=== PATIENT | female | born 1950 | race Hispanic/Latino ===

== ENCOUNTER 2017-07-17 22:04 | Observation (INO) | payer MEDICARE ==
[~2017-07-17] VITALS: Ht 149.9 cm; Wt 64.3 kg
[2017-07-17] MEDS ORDERED: ASPIRIN 325 MG TABLET ONE (23:19)
[2017-07-17 23:45] LABS: BASOPHILS % (AUTO) 0.8 % (0.0-5.0); EOSINOPHILS % (AUTO) 1.8 % (0.0-8.0); HEMATOCRIT 30.1 % (36-48); LYMPHOCYTES % (AUTO) 38.6 % (21.0-51.0); MEAN CORPUSCULAR HGB CONC 34.3 g/dL (32.0-36.0); MEAN CORPUSCULAR VOLUME 87.6 fL (79-99); MONOCYTES % (AUTO) 7.5 % (3.0-13.0); NEUTROPHILS % (AUTO) 51.3 % (40.0-77.0); PLATELET COUNT (AUTO) 289 K/uL (130-400); RED BLOOD CELL COUNT(AUTO) 3.44 MIL/uL (4.00-5.50); RED CELL DISTRIBUTION WIDTH 13.5 % (11.0-15.5); WHITE BLOOD COUNT (AUTO) 7.3 K/uL (4.8-10.8)
[2017-07-17 23:46] LABS: APPEARANCE,URINE Clear (CLEAR); BILIRUBIN,URINE Negative (NEGATIVE); COLOR,URINE Yellow (YELLOW); GLUCOSE, URINE (UA) Negative (NEGATIVE); KETONES,URINE Negative (NEGATIVE); LEUKOCYTE ESTERASE ,URINE Small (NEGATIVE); NITRATE,URINE Negative (NEGATIVE); OCCULT BLOOD,URINE Negative (NEGATIVE); PROTEIN,URINE Negative (NEGATIVE); UROBILINOGEN,URINE 0.2 mg/dL (0.2-1.0)
[2017-07-17 23:57] LABS: CREATININE 1.1 mg/dL (0.5-1.5); POTASSIUM 4.2 mmol/L (3.5-5.1)
[2017-07-18] VITALS (10 sets, daily range): BP systolic 128–162; BP diastolic 47–65
[2017-07-18 00:07] LABS: RBC,URINE 0-1 /HPF (0-1)
[2017-07-18 00:08] LABS: BACTERIA,URINE Rare /HPF (None Seen); SQUAMOUS EPITHELIAL CELL,UR 0-2 /LPF (0-2); WBC,URINE 0-1 /HPF (0-1)
[2017-07-18 00:11] LABS: ALBUMIN 3.8 g/dL (3.5-5.0); BILIRUBIN,TOTAL 0.2 mg/dL (0.2-1.0); CREATINE KINASE MB 0.7 ng/mL (0.5-3.6); TOTAL PROTEIN, SERUM 7.6 g/dL (6.0-8.3)
[2017-07-18] MEDS ORDERED: ACETAMINOPHEN 325 MG TAB ONE (00:40)
[2017-07-18] MEDS ORDERED: SERT50TA12 PO (04:47)
[2017-07-18] MEDS ORDERED: ATOR40TA69 PO (04:47)
[2017-07-18] MEDS ORDERED: OLME20TA22 PO (04:47)
[2017-07-18] MEDS ORDERED: HYDROCORT PO (04:47)
[2017-07-18] MEDS ORDERED: CYAN-35 PO (04:47)
[2017-07-18] MEDS ORDERED: AMLO10TA2 PO (04:47)
[2017-07-18] MEDS ORDERED: LEVO125 PO (04:47)
[2017-07-18] MEDS ORDERED: FOLI1TAB15 PO (04:47)
[2017-07-18] MEDS ORDERED: FENO135C4 PO (04:47)
[2017-07-18] MEDS ORDERED: RANO500T2 PO (04:47)
[2017-07-18] MEDS ORDERED: BIOT300T2 PO (04:47)
[2017-07-18] MEDS ORDERED: ESOM20CA39 PO (04:47)
[2017-07-18] MEDS ORDERED: OMEG-75 PO (04:47)
[2017-07-18] MEDS ORDERED: SODIUM CHLORIDE 0.9% 1000ML 1,000 ML IV ONE (05:20)
[2017-07-18 06:39] LABS: HEMATOCRIT 28.7 % (36-48); LYMPHOCYTES % (AUTO) 53.5 % (21.0-51.0); MEAN CORPUSCULAR HEMOGLOBIN 30.5 pg (27.0-33.0); MEAN CORPUSCULAR HGB CONC 34.9 g/dL (32.0-36.0); MEAN CORPUSCULAR VOLUME 87.2 fL (79-99); MONOCYTES % (AUTO) 7.9 % (3.0-13.0); NEUTROPHILS % (AUTO) 34.6 % (40.0-77.0); PLATELET COUNT (AUTO) 275 K/uL (130-400); RED BLOOD CELL COUNT(AUTO) 3.29 MIL/uL (4.00-5.50); RED CELL DISTRIBUTION WIDTH 13.4 % (11.0-15.5); WHITE BLOOD COUNT (AUTO) 6.3 K/uL (4.8-10.8)
[2017-07-18] MEDS ORDERED: POTASSIUM CHLORIDE 20MEQ/100ML 100 ML IV PRN (06:45)
[2017-07-18] MEDS ORDERED: CLONIDINE HCL 0.1 MG TABLET PO PRN (06:45)
[2017-07-18] MEDS ORDERED: ACETAMINOPHEN 325 MG TAB PO PRN ×2 (06:45)
[2017-07-18] MEDS ORDERED: LIDOCAINE HCL-MPF 1% 2ML VIAL IJ PRN (06:45)
[2017-07-18] MEDS ORDERED: SODIUM CHLORIDE 0.9% 1000ML 1,000 ML IV SCH (06:45)
[2017-07-18] MEDS ORDERED: SODIUM CHLORIDE 0.9% 10 ML VIAL IVP SCH (06:45)
[2017-07-18] MEDS ORDERED: LACTULOSE 20 GM/30 ML UDCUP PO PRN (06:45)
[2017-07-18] MEDS ORDERED: POTASSIUM CHLORIDE 10% ELIXIR 20 MEQ/15 ML UDCUP PO PRN (06:45)
[2017-07-18] MEDS ORDERED: NITROGLYCERIN 0.4 MG SL TAB SL PRN (06:45)
[2017-07-18] MEDS ORDERED: POTASSIUM CHLORIDE 20 MEQ ERTAB PO PRN (06:45)
[2017-07-18 07:05] LABS: CARBON DIOXIDE 23 mmol/L (21-32); CHLORIDE 106 mmol/L (101-111); CREATINE KINASE MB 0.6 ng/mL (0.5-3.6); CREATINE KINASE, TOTAL 73 U/L (21-232); GLOMERULAR FILTR. RATE CALC 59 mL/min (>60); GLUCOSE,RANDOM 102 mg/dL (70-105); MYOGLOBIN 47 ng/mL (10-92); POTASSIUM 3.9 mmol/L (3.5-5.1); SODIUM SERUM 138 mmol/L (136-145); TROPONIN I < 0.04 ng/mL (0.00-0.06); UREA NITROGEN, BLOOD 22 mg/dL (7-18)
[2017-07-18] MEDS: FAMOTIDINE 20MG TAB 20 MG TAB PO SCH ×2 (08:38→21:44)
[2017-07-18] MEDS: ASPIRIN 81 MG EC TAB PO SCH (08:38)
[2017-07-18] MEDS ORDERED: BIOTIN 500 MCG PO SCH (09:00)
[2017-07-18] MEDS: CYANOCOBALAMIN (VITAMIN B-12) 1,000 MCG TABLET PO SCH (09:00)
[2017-07-18] MEDS ORDERED: FENOFIBRIC ACID 135 MG PO SCH (09:00)
[2017-07-18] MEDS: FISH OIL 1000 MG/CAP PO SCH ×2 (13:17→21:44)
[2017-07-18] MEDS: FOLIC ACID 1 MG TABLET PO SCH (13:17)
[2017-07-18] MEDS: RANOLAZINE 500 MG TAB.SR.12H PO SCH (13:17)
[2017-07-18] MEDS: AMLODIPINE BESYLATE 5 MG TAB PO SCH (13:17)
[2017-07-18] MEDS: SERTRALINE HCL 50 MG TABLET PO SCH (13:18)
[2017-07-18] MEDS ORDERED: ATORVASTATIN CALCIUM 40 MG TABLET PO SCH (21:00)
[2017-07-19 04:16] VITALS: BP 152/62
[2017-07-19 04:35] LABS: CREATININE 0.9 mg/dL (0.5-1.5); POTASSIUM 4.2 mmol/L (3.5-5.1)
[2017-07-19] MEDS ORDERED: LEVOTHYROXINE 125 MCG TABLET PO SCH (07:30)
[2017-07-19] MEDS ORDERED: HYDROCORTISONE 10 MG PO SCH (08:00)
[2017-07-19 08:15] VITALS: BP 157/57
[2017-07-19] MEDS: FOLIC ACID 1 MG TABLET PO SCH (08:25)
[2017-07-19] MEDS: CYANOCOBALAMIN (VITAMIN B-12) 1,000 MCG TABLET PO SCH (08:25)
[2017-07-19] MEDS: FAMOTIDINE 20MG TAB 20 MG TAB PO SCH (08:26)
[2017-07-19] MEDS: FISH OIL 1000 MG/CAP PO SCH (08:26)
[2017-07-19] MEDS: ASPIRIN 81 MG EC TAB PO SCH (08:26)
[2017-07-19] MEDS: RANOLAZINE 500 MG TAB.SR.12H PO SCH (08:26)
[2017-07-19] MEDS: AMLODIPINE BESYLATE 5 MG TAB PO SCH (08:26)
[2017-07-19] MEDS: SERTRALINE HCL 50 MG TABLET PO SCH (08:26)
[2017-07-19] MEDS ORDERED: LOSARTAN 100 MG TABLET PO SCH (09:00)
== END 2017-07-19 10:20 | disposition home or self-care (01) ==
LOC: EDH 22:04 → EDHIP 07-18 01:53 → 3AH 07-18 04:18
PROVIDERS: ADMIT Family Medicine; ATTEND Family Medicine
DX: I95.9 Hypotension, unspecified (principal); R53.1 Weakness; R07.89 Other chest pain; I10 Essential (primary) hypertension; E03.9 Hypothyroidism, unspecified; E78.5 Hyperlipidemia, unspecified; I20.9 Angina pectoris, unspecified; M19.90 Unspecified osteoarthritis, unspecified site; N28.89 Other specified disorders of kidney and ureter
CPT/HCPCS: 36415 ×3; 71046; 80048 ×2; 80053; 81001; 82550 ×2; 82553 ×2; 83874 ×2; 84484 ×2; 85025 ×2; 93005 ×2; 97161; 99285; G0378 ×32; G8978; G8979; G8980; G8981; G8982; G8983; J7030

== ENCOUNTER 2018-12-05 21:44 | Emergency (ER) | payer MEDICARE ==
[~2018-12-05 21:44] MED LIST: AMLO10TA7 PO; ATOR40TA69 PO; CHOL200012 PO; CYAN-35 PO; DIPH25TA51 PO; ESOM20CA39 PO; FENO135C4 PO; FOLI1TAB15 PO; HYDROCORT PO; LEVO125 PO; LEVO500T2 PO; METR500T PO; NITR0.4T50 SL; OLME5TAB6 PO; OMEG-75 PO; RANO500T2 PO; SERT50TA12 PO
[2018-12-05] MEDS ORDERED: ONDANSETRON HCL 4 MG/2 ML VIAL ONE (22:36)
[2018-12-05] MEDS ORDERED: SODIUM CHLORIDE 0.9% 1000ML 1,000 ML IV ONE (22:36)
[2018-12-05] MEDS ORDERED: DIPHENOXYLATE HCL/ATROPINE 2.5/0.025 MG TAB PO ONE (22:36)
[2018-12-05 22:42] LABS: BASOPHILS % (AUTO) 1.5 % (0.0-5.0); EOSINOPHILS % (AUTO) 5.3 % (0.0-8.0); HEMATOCRIT 32.8 % (36-48); LYMPHOCYTES % (AUTO) 49.1 % (21.0-51.0); MEAN CORPUSCULAR HEMOGLOBIN 29.7 pg (27.0-33.0); MEAN CORPUSCULAR HGB CONC 33.7 g/dL (32.0-36.0); MEAN CORPUSCULAR VOLUME 88.1 fL (79-99); MONOCYTES % (AUTO) 12.1 % (3.0-13.0); PLATELET COUNT (AUTO) 215 K/uL (130-400); RED BLOOD CELL COUNT(AUTO) 3.73 MIL/uL (4.00-5.50); RED CELL DISTRIBUTION WIDTH 13.8 % (11.0-15.5); WHITE BLOOD COUNT (AUTO) 3.3 K/uL (4.8-10.8)
[2018-12-05 22:50] LABS: APPEARANCE,URINE Clear (CLEAR); BILIRUBIN,URINE Negative (NEGATIVE); COLOR,URINE Dark Yellow (YELLOW); GLUCOSE, URINE (UA) Negative (NEGATIVE); KETONES,URINE Trace mg/dL (NEGATIVE); LEUKOCYTE ESTERASE ,URINE Small (NEGATIVE); NITRATE,URINE Negative (NEGATIVE); OCCULT BLOOD,URINE Trace (NEGATIVE); PROTEIN,URINE Negative (NEGATIVE)
[2018-12-05 23:00] LABS: CREATININE 0.8 mg/dL (0.5-1.5); POTASSIUM 3.8 mmol/L (3.5-5.1)
[2018-12-05 23:04] LABS: ALBUMIN 3.3 g/dL (3.5-5.0); BILIRUBIN,TOTAL 0.3 mg/dL (0.2-1.0)
[2018-12-05 23:04] LABS: BACTERIA,URINE Few /HPF (None Seen); RBC,URINE 0-1 /HPF (0-1)
[2018-12-05 23:05] LABS: SQUAMOUS EPITHELIAL CELL,UR 0-2 /HPF (0-2)
[2018-12-11] MEDS ORDERED: ROPIVACAINE 0.5% 5MG/ML 30ML IJ ONE (21:03)
== END 2018-12-06 00:28 | disposition home or self-care (01) ==
LOC: EDH 21:44
DX: A09 Infectious gastroenteritis and colitis, unspecified (principal); R11.2 Nausea with vomiting, unspecified; M19.90 Unspecified osteoarthritis, unspecified site; E78.5 Hyperlipidemia, unspecified; I10 Essential (primary) hypertension; E07.9 Disorder of thyroid, unspecified; Z88.0 Allergy status to penicillin
CPT/HCPCS: 36415; 80053; 81001; 83690; 85025; 87804 ×2; 96361; 96374; 99285; J2405; J7030

== ENCOUNTER → 2019-04-18 | Outpatient (CLI) | payer MEDICARE ==
--- NOTE | 2019-04-18 11:00 | NUR ---
MBSS COMPLETED. -S/S OF ASPIRATION. RECOMMEND REGULAR TEXTURE, THIN LIQUIDS; PILLS WHOLE WITH LIQUIDS. Addendum: 04/19/19 at 0853 by DANIELLE LUU, [facility] Amended: Links added.
== END | disposition home or self-care (01) ==
LOC: RAH 09:51
PROVIDERS: ATTEND Internal Medicine Gastroenterology
DX: R13.12 Dysphagia, oropharyngeal phase (principal); R63.3 Feeding difficulties; Z88.0 Allergy status to penicillin
CPT/HCPCS: 74230; 92611

== ENCOUNTER 2019-08-25 13:55 | Inpatient (IN) | payer MEDICARE ==
[~2019-08-25] VITALS: Ht 149.9 cm; Wt 61.6 kg
[~2019-08-25 13:55] MED LIST changes: +ASPI-555 PO; -ATOR40TA69 PO; +B12/1TAB PO; -CHOL200012 PO; -CYAN-35 PO; -DIPH25TA51 PO; +ERGO800010 PO; -ESOM20CA39 PO; -FENO135C4 PO; +FOLI0.4T2 PO; -FOLI1TAB15 PO; +HYDR-3894 PO; +HYDR12.54 PO; -HYDROCORT PO; +ICOS1CAP PO; +ISOS30TA6 PO; +LEVE-43 PO; -LEVO125 PO; +LEVO125T11 PO; +LOSA50TA64 PO; +METF-444 PO; -METR500T PO; -OLME5TAB6 PO; -OMEG-75 PO; +OMEP40CA13 PO; -RANO500T2 PO; +ROSU20TA31 PO
[2019-08-25 14:24] LABS: BASOPHILS % (AUTO) 0.1 % (0.0-5.0); EOSINOPHILS % (AUTO) 0.1 % (0.0-8.0); HEMATOCRIT 38.1 % (36-48); LYMPHOCYTES % (AUTO) 16.9 % (21.0-51.0); MEAN CORPUSCULAR HEMOGLOBIN 28.7 pg (27.0-33.0); MEAN CORPUSCULAR HGB CONC 32.8 g/dL (32.0-36.0); MEAN CORPUSCULAR VOLUME 87.6 fL (79-99); MONOCYTES % (AUTO) 2.2 % (3.0-13.0); NEUTROPHILS % (AUTO) 80.6 % (40.0-77.0); PLATELET COUNT (AUTO) 276 K/uL (130-400); RED BLOOD CELL COUNT(AUTO) 4.35 MIL/uL (4.00-5.50); RED CELL DISTRIBUTION WIDTH 12.6 % (11.0-15.5); WHITE BLOOD COUNT (AUTO) 8.3 K/uL (4.8-10.8)
[2019-08-25 14:45] LABS: CARBON DIOXIDE 21 mmol/L (21-32); CHLORIDE 104 mmol/L (101-111); CREATININE 1.3 mg/dL (0.5-1.5); GLOMERULAR FILTR. RATE CALC 43 mL/min (>60); GLUCOSE,RANDOM 98 mg/dL (70-105); INR 0.94 (0.85-1.15); PARTIAL THROMBOPLASTIN TIME 21.9 SEC (26.3-35.5); POTASSIUM 3.8 mmol/L (3.5-5.1); PROTHROMBIN TIME 10.2 SEC (9.6-11.6); SODIUM SERUM 142 mmol/L (136-145); UREA NITROGEN, BLOOD 22 mg/dL (7-18)
[2019-08-25 14:57] LABS: ALANINE AMINOTRANSFERASE 29 U/L (12-78); ASPARTATE AMINOTRANSFERASE 27 U/L (10-37); BILIRUBIN,TOTAL 0.2 mg/dL (0.2-1.0); CREATINE KINASE, TOTAL 56 U/L (21-232); MYOGLOBIN 64 ng/mL (10-92); TOTAL PROTEIN, SERUM 8.2 g/dL (6.0-8.3); TROPONIN I < 0.04 ng/mL (0.00-0.06)
[2019-08-25] MEDS ORDERED: SODIUM CHLORIDE 0.9% 500ML 500 ML IV ONE (15:07)
[2019-08-25 15:56] LABS: APPEARANCE,URINE Cloudy (CLEAR); BILIRUBIN,URINE Small (NEGATIVE); COLOR,URINE Dark Yellow (YELLOW); GLUCOSE, URINE (UA) Negative (NEGATIVE); KETONES,URINE Trace mg/dL (NEGATIVE); LEUKOCYTE ESTERASE ,URINE Trace (NEGATIVE); NITRATE,URINE Negative (NEGATIVE); OCCULT BLOOD,URINE Negative (NEGATIVE); PROTEIN,URINE POS 1+ mg/dL (NEGATIVE)
[2019-08-25 16:21] LABS: BACTERIA,URINE Few /HPF (None Seen); RBC,URINE 0-1 /HPF (0-1)
[2019-08-25 16:22] LABS: MUCUS,URINE Few LPF (None Seen); SQUAMOUS EPITHELIAL CELL,UR Few /HPF (0-2)
[2019-08-25] MEDS ORDERED: SODIUM CHLORIDE 0.9% 1000ML 1,000 ML IV SCH (19:56)
[2019-08-25] MEDS ORDERED: NITROGLYCERIN 0.4 MG SL TAB SL PRN (20:00)
[2019-08-25] MEDS ORDERED: ONDANSETRON HCL 4 MG/2 ML VIAL IV PRN (20:00)
[2019-08-25] MEDS ORDERED: ACETAMINOPHEN 325 MG TAB PO PRN ×2 (20:00)
[2019-08-25] MEDS ORDERED: ACETAMINOPHEN 325 MG TAB ONE (20:21)
[2019-08-25] MEDS ORDERED: SODIUM CHLORIDE 0.9% 1000ML 1,000 ML IV ONE (20:47)
[2019-08-25 20:59] LABS: CREATINE KINASE, TOTAL 102 U/L (21-232); MYOGLOBIN 143 ng/mL (10-92); TROPONIN I < 0.04 ng/mL (0.00-0.06)
[2019-08-25] MEDS ORDERED: IOHEXOL-350 75 ML VIAL IV ONE (21:18)
[2019-08-25 21:22] LABS: HEMOGLOBIN A1C 5.6 % (4.0-6.0)
[2019-08-26 04:57] LABS: HEMATOCRIT 31.2 % (36-48); MEAN CORPUSCULAR HEMOGLOBIN 28.7 pg (27.0-33.0); MEAN CORPUSCULAR VOLUME 86.9 fL (79-99); PLATELET COUNT (AUTO) 234 K/uL (130-400); RED BLOOD CELL COUNT(AUTO) 3.59 MIL/uL (4.00-5.50); WHITE BLOOD COUNT (AUTO) 12.3 K/uL (4.8-10.8)
[2019-08-26 05:15] LABS: ALBUMIN 2.8 g/dL (3.5-5.0); BILIRUBIN,TOTAL 0.4 mg/dL (0.2-1.0); MAGNESIUM 2.4 mg/dL (1.80-2.40); POTASSIUM 3.9 mmol/L (3.5-5.1); TOTAL PROTEIN, SERUM 6.4 g/dL (6.0-8.3)
[2019-08-26 06:15] VITALS: BP 146/50
--- NOTE | 2019-08-26 06:15 | NUR ---
ADMISSION PT TRANSFERRED FORM ER VIA STRETCHER, INTO ROOM 405. AWAKE, ALERT AND VERBALLY RESPONSIVE, NO C/O PAIN OR DISCOMFORT AT THIS TIME. PT AND FAMILY AT BEDSIDE ORIENTED TO ROOM, CALL STERN WITHIN REACH, BED IN LOWEST POSITION. Addendum: 08/26/19 at 0649 by GLORIA BIGGS RN Amended: Links added.
[2019-08-26] MEDS: CIPROFLOXACIN HCL 500 MG TABLET PO SCH ×2 (06:22→09:26)
[2019-08-26] MEDS: ASPIRIN 81 MG EC TAB PO SCH ×2 (06:22→09:25)
[2019-08-26] MEDS: FAMOTIDINE/PF 20 MG/2 ML VIAL IV SCH ×2 (06:22→21:35)
[2019-08-26 06:38] LABS: BAND NEUTROPHILS % (MANUAL) 15 % (0-2); EOSINOPHILS % (MANUAL) 1 % (1-6); LYMPHOCYTES % (MANUAL) 26 % (22-44); MAN.DIFF COMMENT-IMPRESSION MANUAL DIFFERENTIAL; MONOCYTES % (MANUAL) 3 % (2-9); REACTIVE LYMPHOCYTES 1 % (0-0); SEGMENTED NEUTROPHILS % 54 % (40-70)
[2019-08-26] MEDS ORDERED: ESLI400T PO (07:57)
[2019-08-26] MEDS ORDERED: HYDR5TAB14 PO (07:57)
[2019-08-26] MEDS ORDERED: LEVE-43 PO (07:58)
[2019-08-26 08:00] VITALS: BP 129/39
[2019-08-26] MEDS: ENOXAPARIN SODIUM 30 MG/0.3 ML SQ SCH (09:26)
--- NOTE | 2019-08-26 09:37 | NUR ---
pt febrile at 100.2 and having diarrhia, i have placed her on contact precautions.
[2019-08-26 12:00] VITALS: BP 137/48
[2019-08-26] MEDS: DEXTROSE 5%-LACTATED RINGERS 1,000 ML IV SCH (12:15)
[2019-08-26 16:00] VITALS: BP 135/46
[2019-08-26] MEDS ORDERED: LEVOFLOXACIN 500 MG/D5W 100 ML 100 ML IV SCH (17:45)
[2019-08-26] MEDS: METRONIDAZOLE 500MG/100ML BAG 100 ML IV SCH ×2 (18:12→21:46)
[2019-08-26] MEDS: CEFTRIAXONE SODIUM 1 GM IVP SCH (18:15)
[2019-08-26 20:08] VITALS: BP 146/52
--- NOTE | 2019-08-26 20:55 | NUR ---
cm note met with patient and states resides athome with spouse, independent with ambulation, has provider 3hrs daily for adls assist. dtr assists with transport. feels safe to [place]. Addendum: 08/26/19 at 2056 by AMBERLY SANDERS CM Amended: Links added.
[2019-08-26] MEDS: LOSARTAN 50 MG TABLET PO SCH (21:35)
[2019-08-26] MEDS: ATORVASTATIN CALCIUM 40 MG TABLET PO SCH (21:35)
[2019-08-27] VITALS (7 sets, daily range): BP systolic 120–156; BP diastolic 49–80
[2019-08-27] MEDS: DEXTROSE 5%-LACTATED RINGERS 1,000 ML IV SCH (00:56)
[2019-08-27] MEDS: METRONIDAZOLE 500MG/100ML BAG 100 ML IV SCH ×3 (05:39→22:40)
[2019-08-27 05:48] LABS: BASOPHILS % (AUTO) 0.1 % (0.0-5.0); EOSINOPHILS % (AUTO) 3.9 % (0.0-8.0); HEMATOCRIT 30.1 % (36-48); LYMPHOCYTES % (AUTO) 28.7 % (21.0-51.0); MEAN CORPUSCULAR HEMOGLOBIN 28.7 pg (27.0-33.0); MEAN CORPUSCULAR HGB CONC 32.9 g/dL (32.0-36.0); MEAN CORPUSCULAR VOLUME 87.2 fL (79-99); MONOCYTES % (AUTO) 4.8 % (3.0-13.0); NEUTROPHILS % (AUTO) 62.4 % (40.0-77.0); PLATELET COUNT (AUTO) 232 K/uL (130-400); RED BLOOD CELL COUNT(AUTO) 3.45 MIL/uL (4.00-5.50); RED CELL DISTRIBUTION WIDTH 12.8 % (11.0-15.5); WHITE BLOOD COUNT (AUTO) 8.1 K/uL (4.8-10.8)
[2019-08-27 06:27] LABS: ALBUMIN 2.9 g/dL (3.5-5.0); BILIRUBIN,TOTAL 0.3 mg/dL (0.2-1.0); CREATININE 0.8 mg/dL (0.5-1.5); POTASSIUM 3.2 mmol/L (3.5-5.1); TOTAL PROTEIN, SERUM 6.5 g/dL (6.0-8.3)
[2019-08-27] MEDS ORDERED: LEVOTHYROXINE 125 MCG TABLET PO SCH (09:00)
[2019-08-27] MEDS ORDERED: PANTOPRAZOLE SODIUM 40 MG TABLET.DR PO SCH (09:00)
[2019-08-27] MEDS: ASPIRIN 81 MG EC TAB PO SCH (09:06)
[2019-08-27] MEDS: LOSARTAN 50 MG TABLET PO SCH ×2 (09:06→20:15)
[2019-08-27] MEDS: SERTRALINE HCL 50 MG TABLET PO SCH (09:07)
[2019-08-27] MEDS: AMLODIPINE BESYLATE 5 MG TAB PO SCH (09:08)
[2019-08-27] MEDS: FOLIC ACID 1 MG TABLET PO SCH (09:09)
[2019-08-27] MEDS: ISOSORBIDE MONO 30MG TAB SR PO SCH (09:11)
[2019-08-27] MEDS: ENOXAPARIN SODIUM 30 MG/0.3 ML SQ SCH (09:12)
--- NOTE | 2019-08-27 11:20 | NUR ---
DYSPHAGIA EVAL COMPLETED. -S/S OF ASPIRATION. RECOMMEND REGULAR TEXTURE, THIN LIQUIDS; PILLS WHOLE WITH LIQUIDS. Addendum: 08/27/19 at 1236 by DANIELLE LUU, [facility] Amended: Links added.
--- NOTE | 2019-08-27 11:45 | NUR ---
COGNITIVE EVAL COMPLETE. COGNITIVE-LINGUISTIC ABILITIES WITHIN FUNCTIONAL LIMITS. EVALUATION: Pt AAOX3. Pt REQUESTS WANTS AND NEEDS INDEPENDENTLY. Pt INTELLIGIBLE AT 100% ACCURACY TO THE UNFAMILIAR LISTENER. Pt COMMUNICATING AT CONVERSATIONAL LEVEL WITH NO DEFICITS IDENTIFIED AT THIS TIME. Pt COMPLETED COGNITIVE-LINGUISTIC EVALUATION TARGETING: ORIENTATION, ATTENTION/CONCENTRATION, MEMORY (IMMEDIATE, SHORT-TERM AND LONG-TERM), PROBLEM SOLVING, LOGIC/REASONING/INFERENCE, THOUGHT ORGANIZATION, FUNCTIONAL MATH AND TELLING TIME. Pt ABLE TO COMPLETE TASKS WITH CORRECT AND TIMELY ANSWERS TO ALL SECTIONS. G-CODES SPOKEN LANGUAGE EXPRESSION: [id number] Addendum: 08/27/19 at 1343 by DANIELLE LUU [facility] Amended: Links added.
--- NOTE | 2019-08-27 15:54 | NUR ---
NUTRITION EDUCATION BRANDON provided Heart Healthy Nutrition education to Pt via Chinese translation. RD provided reference materials and handouts. RD answered all of Pt questions. Pt verbalized understanding. BRANDON encouraged Pt to notify as questions or concerns arise. Addendum: 08/27/19 at [address] RD Amended: Links added.
--- NOTE | 2019-08-27 16:09 | NUR ---
RD Notification Pt admitted for TIA. Pt diet advanced to soft diet. Pt reports experience some nausea and cannot tolerate spicy foods. Recommend to modify to GI soft/[place] diet order. RD provided nutrition education (please see teaching record and nutrition education note). RD to continue to monitor. Please notify RD as additional nutrition concerns arise. Thank you. Addendum: 08/27/19 at [address] Amended: Links added.
[2019-08-27] MEDS: CEFTRIAXONE SODIUM 1 GM IVP SCH (17:49)
--- NOTE | 2019-08-27 18:25 | NUR ---
RASH PATIENT REPORTED ITCHING TO CHEST AND UPPER BACK. UPON INSPECTION THERE WERE HIVES NOTED. SHE DENIES SHORTNESS OF BREATH OR DIFFICULTY BREATHING. HOSPITALIST MANAGER ASSESSMENT WAS PAGED. PENDING CALL BACK.
[2019-08-27] MEDS ORDERED: POTASSIUM CHLORIDE 20 MEQ ERTAB PO SCH ×2 (18:30→22:00)
--- NOTE | 2019-08-27 18:33 | NUR ---
HOSPITALIST ARIADNE SANDY FOR [facility] HAS RETURNED MY CALL AND HAS GIVEN ORDERS.
[2019-08-27] MEDS ORDERED: DiphenhydrAMINE HCL 50 MG/ML VIAL IV STA (18:43)
--- NOTE | 2019-08-27 20:00 | NUR ---
PATIENT RECEIVED IN BED, AAOX3, NO ACUTE DISTRESS NOTED. PATIENT RECEIVED BENADRYL 25 MG IVP EARLIER AFTER EXPERIENCING A RASH AFTER RECEIVING ROCEPHIN IV. AT THIS TIME, NO SOB OR C/O CHEST PAIN VOICED. NOTED WITH REDNESS TO CHEST, BACK UPPER THIGHS. STATES SHE FEELS BETTER AFTER RECEIVING THE BENADRYL. WILL CONT TO MONITOR CLOSELY. Addendum: 08/27/19 at 0407 by ODALYS BENAVIDES RN RN Amended: Links added.
[2019-08-27] MEDS: ATORVASTATIN CALCIUM 40 MG TABLET PO SCH (20:15)
[2019-08-27] MEDS ORDERED: FAMOTIDINE 20MG TAB 20 MG TAB PO SCH (21:00)
--- NOTE | 2019-08-27 23:20 | NUR ---
RECEIVED CALL FROM MARGIE ARIZMENDI [employer]MODAL TRUCK DRIVER, UPDATED ON STATUS. INSTRUCTED TO ADD ROCEPHIN TO LIST OF ALLERGIES. PATIENT AT THIS TIME WITH NO COMPLAINTS OR ACUTE DISTRESS NOTED. WILL CONT TO MONITOR CLOSELY.
[2019-08-28 03:38] VITALS: BP 126/45
[2019-08-28] MEDS: DIPHENHYDRAMINE HCL 25 MG CAPSULE PO PRN ×2 (04:41→20:28)
[2019-08-28 05:02] LABS: EOSINOPHILS % (AUTO) 6.8 % (0.0-8.0); HEMATOCRIT 28.5 % (36-48); LYMPHOCYTES % (AUTO) 17.7 % (21.0-51.0); MEAN CORPUSCULAR HEMOGLOBIN 28.7 pg (27.0-33.0); MEAN CORPUSCULAR HGB CONC 33.7 g/dL (32.0-36.0); MEAN CORPUSCULAR VOLUME 85.3 fL (79-99); MONOCYTES % (AUTO) 6.9 % (3.0-13.0); NEUTROPHILS % (AUTO) 68.4 % (40.0-77.0); PLATELET COUNT (AUTO) 206 K/uL (130-400); RED BLOOD CELL COUNT(AUTO) 3.34 MIL/uL (4.00-5.50); RED CELL DISTRIBUTION WIDTH 12.5 % (11.0-15.5); WHITE BLOOD COUNT (AUTO) 6.2 K/uL (4.8-10.8)
[2019-08-28 05:19] LABS: ALBUMIN 2.5 g/dL (3.5-5.0); BILIRUBIN,TOTAL 0.3 mg/dL (0.2-1.0); CREATININE 0.8 mg/dL (0.5-1.5); POTASSIUM 4.2 mmol/L (3.5-5.1); TOTAL PROTEIN, SERUM 5.8 g/dL (6.0-8.3)
[2019-08-28] MEDS: METRONIDAZOLE 500MG/100ML BAG 100 ML IV SCH (06:10)
[2019-08-28] MEDS ORDERED: POTASSIUM CHLORIDE 20 MEQ ERTAB PO SCH (07:00)
[2019-08-28 07:30] VITALS: BP 129/46
[2019-08-28] MEDS: ASPIRIN 81 MG EC TAB PO SCH (10:03)
[2019-08-28] MEDS: LOSARTAN 50 MG TABLET PO SCH ×2 (10:03→20:28)
[2019-08-28] MEDS: FOLIC ACID 1 MG TABLET PO SCH (10:05)
[2019-08-28] MEDS: SERTRALINE HCL 50 MG TABLET PO SCH (10:05)
[2019-08-28] MEDS: ISOSORBIDE MONO 30MG TAB SR PO SCH (10:05)
[2019-08-28] MEDS: AMLODIPINE BESYLATE 5 MG TAB PO SCH (10:06)
[2019-08-28] MEDS: ENOXAPARIN SODIUM 30 MG/0.3 ML SQ SCH (10:08)
[2019-08-28] MEDS ORDERED: LEVOTHYROXINE 100 MCG TABLET PO SCH (10:15)
[2019-08-28 11:00] VITALS: BP 113/51
[2019-08-28] MEDS ORDERED: HYDROCORTISONE 20 MG TABLET PO SCH (15:15)
[2019-08-28 16:00] VITALS: BP 117/47
[2019-08-28 19:45] VITALS: BP 122/49
[2019-08-28] MEDS: ATORVASTATIN CALCIUM 40 MG TABLET PO SCH (20:28)
[2019-08-28] MEDS: HYDROCORTISONE 20 MG TABLET PO SCH (20:28)
[2019-08-28 23:19] VITALS: BP 108/49
[2019-08-29 03:14] VITALS: BP 131/54
[2019-08-29 04:56] LABS: EOSINOPHILS % (AUTO) 4.1 % (0.0-8.0); HEMATOCRIT 27.5 % (36-48); LYMPHOCYTES % (AUTO) 15.5 % (21.0-51.0); MEAN CORPUSCULAR HEMOGLOBIN 28.8 pg (27.0-33.0); MEAN CORPUSCULAR HGB CONC 33.5 g/dL (32.0-36.0); MEAN CORPUSCULAR VOLUME 86.2 fL (79-99); MONOCYTES % (AUTO) 5.5 % (3.0-13.0); NEUTROPHILS % (AUTO) 74.7 % (40.0-77.0); PLATELET COUNT (AUTO) 216 K/uL (130-400); RED BLOOD CELL COUNT(AUTO) 3.19 MIL/uL (4.00-5.50); RED CELL DISTRIBUTION WIDTH 12.5 % (11.0-15.5); WHITE BLOOD COUNT (AUTO) 6.4 K/uL (4.8-10.8)
[2019-08-29] MEDS: DIPHENHYDRAMINE HCL 25 MG CAPSULE PO PRN ×3 (05:03→17:02)
[2019-08-29 05:28] LABS: ALBUMIN 2.6 g/dL (3.5-5.0); BILIRUBIN,TOTAL 0.3 mg/dL (0.2-1.0); CREATININE 0.8 mg/dL (0.5-1.5); POTASSIUM 4.3 mmol/L (3.5-5.1); TOTAL PROTEIN, SERUM 5.9 g/dL (6.0-8.3)
[2019-08-29] MEDS: LEVOTHYROXINE 125 MCG TABLET PO SCH (05:50)
[2019-08-29 08:00] VITALS: BP 134/50
[2019-08-29] MEDS: FAMOTIDINE/PF 20 MG/2 ML VIAL IV SCH ×2 (09:52→20:53)
[2019-08-29] MEDS: SERTRALINE HCL 50 MG TABLET PO SCH (09:52)
[2019-08-29] MEDS: ASPIRIN 81 MG EC TAB PO SCH (09:53)
[2019-08-29] MEDS: HYDROCORTISONE 20 MG TABLET PO SCH ×2 (09:53→20:53)
[2019-08-29] MEDS: LOSARTAN 50 MG TABLET PO SCH ×2 (09:53→20:54)
[2019-08-29] MEDS: ISOSORBIDE MONO 30MG TAB SR PO SCH (09:54)
[2019-08-29] MEDS: AMLODIPINE BESYLATE 5 MG TAB PO SCH (09:54)
[2019-08-29] MEDS: FOLIC ACID 1 MG TABLET PO SCH (09:54)
[2019-08-29] MEDS: ENOXAPARIN SODIUM 30 MG/0.3 ML SQ SCH (10:14)
[2019-08-29 11:00] VITALS: BP 119/35
[2019-08-29 16:00] VITALS: BP 111/44
[2019-08-29] MEDS: CLOPIDOGREL BISULFATE 75 MG TAB PO SCH (17:01)
[2019-08-29 20:12] VITALS: BP 135/53
[2019-08-29] MEDS: ATORVASTATIN CALCIUM 40 MG TABLET PO SCH (20:53)
[2019-08-30 00:12] VITALS: BP 123/53
[2019-08-30 04:12] VITALS: BP 128/51
[2019-08-30] MEDS: LEVOTHYROXINE 125 MCG TABLET PO SCH (06:54)
[2019-08-30 07:30] VITALS: BP 125/44
[2019-08-30] MEDS: DIPHENHYDRAMINE HCL 25 MG CAPSULE PO PRN (08:54)
[2019-08-30] MEDS: ISOSORBIDE MONO 30MG TAB SR PO SCH (08:54)
[2019-08-30] MEDS: SERTRALINE HCL 50 MG TABLET PO SCH (08:54)
[2019-08-30] MEDS: CLOPIDOGREL BISULFATE 75 MG TAB PO SCH (08:55)
[2019-08-30] MEDS: LOSARTAN 50 MG TABLET PO SCH (08:55)
[2019-08-30] MEDS: FOLIC ACID 1 MG TABLET PO SCH (08:55)
[2019-08-30] MEDS: ASPIRIN 81 MG EC TAB PO SCH (08:55)
[2019-08-30] MEDS: AMLODIPINE BESYLATE 5 MG TAB PO SCH (08:55)
[2019-08-30] MEDS: HYDROCORTISONE 20 MG TABLET PO SCH (08:56)
[2019-08-30] MEDS: ENOXAPARIN SODIUM 30 MG/0.3 ML SQ SCH (08:56)
[2019-08-30] MEDS: FAMOTIDINE/PF 20 MG/2 ML VIAL IV SCH (08:56)
[2019-08-30 11:00] VITALS: BP 126/41
[2019-08-30] MEDS ORDERED: CLOP75TA14 PO (15:37)
== END 2019-08-30 18:15 | disposition home or self-care (01) | DRG 392 ==
LOC: EDH 13:55 → EDHIP 19:00 → 4BH 08-26 06:10
PROVIDERS: ADMIT Hospitalist; ATTEND Hospitalist
DX: A08.4 Viral intestinal infection, unspecified (principal); R65.10 Systemic inflammatory response syndrome (SIRS) of non-infectious origin without acute organ dysfunction; E23.0 Hypopituitarism; E86.0 Dehydration; I10 Essential (primary) hypertension; E03.9 Hypothyroidism, unspecified; E11.9 Type 2 diabetes mellitus without complications; D64.9 Anemia, unspecified; E78.5 Hyperlipidemia, unspecified; Z79.52 Long term (current) use of systemic steroids; Z88.0 Allergy status to penicillin; Z88.8 Allergy status to other drugs, medicaments and biological substances; Z83.3 Family history of diabetes mellitus
CPT/HCPCS: 36415; 70450; 70496; 70498; 70551; 71045; 74176; 80053; 80061; 81001; 82550; 82948; 83036; 83605; 83735; 83874; 84145; 84484; 85025; 85610; 85651; 85730; 86140; 87040; 87088; 92522; 92610; 93005; G0378; J0696; J1200; J1650; J1956; J3490; J7030; J7040; Q0163; Q9967